=== PATIENT | male | born 1975 | race African-American/Black ===

== ENCOUNTER 2025-05-03 05:54 | Emergency (ER) | payer OTHER, SELFPAY ==
[2025-05-03 05:57] VITALS: BP 148/86; PULSE 71; RESP 18; TEMP 36.5; O2SAT 98; BMI 42.7
--- NOTE | 2025-05-03 06:02 | ED.RN ---
The patient asked to come into [facility] to charge his phone, physical security manager informed the patient that the could not be here without being seen as a patient. The patient then decided to be seen. This RN went to triage the patient and the patient stated, "well the security cassidy told me that I needed to be seen if I wanted to hang around here so I have this bone spur, I can show you the x-ray." notified.
--- NOTE | 2025-05-03 06:06 | ED.VIS.LOWEX ---
HPI History of Present Illness Chief Complaint: Lower Extremity Injury Informant: patient Narrative Narrative: Patient is a 50-year-old male presenting with chronic left foot pain due to a bone spur. - Reports chronic left foot pain attributed to a bone spur, discovered on an x-ray taken on May 06. - Currently occasionally using orthotic inserts provided by the [facility]. - Has a scheduled appointment with a air conditioning specialist next week. - Inquires about obtaining a boot for additional support. 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 - Sustained an Achilles tendon injury a few years ago. [facility] Medical History Diabetes Hyperlipidemia Hypertension Home Medications Medication Instructions Recorded Last Taken Type atorvastatin 10 mg tablet (Lipitor) 10 mg PO DAILY 05/03/25 Unknown History lisinopril 40 mg tablet 40 mg PO DAILY 05/03/25 Unknown History metformin 500 mg tablet 500 mg PO BID 05/03/25 Unknown History Allergy/AdvReac Type Severity Reaction Status Date / Time Penicillins Allergy Hives Verified 05/03/25 05:58 Social History Smoking Status: Current some day smoker tobacco type: cigars ROS ROS ED Constitutional Constitutional ED: Denies chills or fever(s) Musculoskeletal Musculoskeletal: Reports extremity pain; Denies neck pain Integumentary Denies Abrasions, rash or wounds Neurologic Neurologic: Denies paresthesias or weakness EXAM Physical Exam Const Vital Signs: 05/03/25 05:57 Temperature 97.7 F L Temperature Source Oral Pulse Rate 71 Respiratory Rate 18 Blood Pressure 148/86 H Blood Pressure Mean 106 Pulse Ox 98 Oxygen Delivery Method Room Air Positive well nourished and well developed Constitutional Narrative: Well-appearing in no distress General Appearance ED: well developed and NAD Neck full ROM and supple Back/Spine normal ROM and normal to inspection Extremity normal to inspection and full ROM Extremity Narrative: Left foot: Fairly flat-footed with regards to arches. There is no calcaneal or plantar fascial tenderness. Or skin changes/abnormalities. Full range of motion of the knee and hip and low back without limitation or difficulty. Neuro oriented x3, no focal motor deficits and no sensory deficits noted Neuro Narrative: Normal gait. Sensorium / Orientation: alert Psych mental status grossly normal and thought process normal Skin no wounds Rashes: no rashes MDM MDM MDM Narrative Medical decision making narrative: The patient does not have an acute issue, as he admits that he signed in to be evaluated for his chronic issues after being advised by security in the waiting room that he needed to be a patient here if he was going to stay to charge his electronic devices. This is not appropriate unless he is an ER patient, especially given that he presented at 6:00 AM. On evaluation, he does not have an acute emergent medical issue. He was provided with follow-up instructions. He requested an orthotic boot, which is not an appropriate use of our resources. As discussed, orthotic inserts are recommended, and [facility]. History & Record Review Additional record(s) reviewed:: Prior outpatient record (Left foot x-ray showing small anterior calcaneal spur that patient shows me from his electronic medical record from his phone that is presumably his x-ray) Discharge Plan Triage Chief Complaint: Lower Extremity Injury ED Provider: Ramesh Gomes Dx/Rx/DC Orders Clinical Impression: Chronic pain in left foot, Chronic low back pain, Heel spur Instructions: ED Heel Spur Prescriptions: No Action lisinopril 40 mg tablet 40 mg PO DAILY metformin 500 mg tablet 500 mg PO BID atorvastatin [Lipitor] 10 mg tablet 10 mg PO DAILY Primary Care Provider: Care Physician,Bree Primary Referrals: [facility] [Provider Group] Referral Note: or your home [facility] clinic Print Language: Latvian Disposition Disposition: Home, Self Care
[2025-05-03 06:18] VITALS: BP 153/79; PULSE 72; RESP 18; TEMP 36.5; O2SAT 98
== END 2025-05-03 06:26 | disposition home or self-care (01) ==
PROVIDERS: Emergency Provider Emergency Medicine; Visit Provider Emergency Medicine
DX: M77.32 Calcaneal spur, left foot (principal); E11.9 Type 2 diabetes mellitus without complications; M54.50 Low back pain, unspecified; E78.5 Hyperlipidemia, unspecified; G89.29 Other chronic pain; I10 Essential (primary) hypertension; Z79.899 Other long term (current) drug therapy; Z79.84 Long term (current) use of oral hypoglycemic drugs; F17.200 Nicotine dependence, unspecified, uncomplicated
CPT/HCPCS: 99282